=== PATIENT | male | born 1945 | race Caucasian/White ===

== ENCOUNTER 2020-10-09 15:46 | Inpatient (IN) | payer MEDICARE, OTHER ==
[~2020-10-09] VITALS: Ht 170.2 cm; Wt 59.7 kg
[2020-10-09] MEDS ORDERED: LOVENOX40 MG/0.4 SUBQ (17:01)
[2020-10-09] MEDS ORDERED: FEOSOL325 M1 PO (17:02)
[2020-10-09] MEDS ORDERED: LIDODERM1 EACH TOP (17:03)
[2020-10-09] MEDS ORDERED: PROSCAR 5MG TABL5 M1 PO (17:05)
[2020-10-09] MEDS ORDERED: OXYCODONE HCL 55 MG PO (17:05)
[2020-10-09] MEDS ORDERED: ARICEPT10 M1 PO (17:05)
[2020-10-09] MEDS ORDERED: NEURONTIN300 MG PO (17:06)
[2020-10-09] MEDS ORDERED: HUMALOG100 UNIT/1 SUBQ (17:17)
[2020-10-09] MEDS ORDERED: COZAAR 25 MG TA25 M1 PO (17:18)
[2020-10-09] MEDS ORDERED: MIRALAX119 GM PO (17:18)
[2020-10-09] MEDS ORDERED: TRAZODONE HCL50 MG PO (17:19)
[2020-10-09] MEDS ORDERED: TYLENOL EXTRA500 MG PO (17:20)
[2020-10-09] MEDS ORDERED: ASPIRIN EC81 M1 PO (17:20)
[2020-10-09] MEDS ORDERED: LIPITOR 40 MG T40 M1 PO (17:20)
[2020-10-09] MEDS ORDERED: BENZONATATE200 MG PO (17:21)
[2020-10-09] MEDS ORDERED: CARVEDILOL6.25 M1 PO (17:22)
[2020-10-09] MEDS ORDERED: GRANISETRON HCL1 MG PO (17:23)
[2020-10-09] MEDS ORDERED: COUGH SYRU100 MG/5 M PO (17:24)
[2020-10-09] MEDS ORDERED: MELATONIN5 M1 PO (17:25)
[2020-10-09] MEDS ORDERED: PROTONIX40 M2 PO (17:26)
[2020-10-09] MEDS ORDERED: DAILY VALUE1 EAC1 PO (17:26)
[2020-10-09] MEDS ORDERED: ACIDOPHILUS1 EAC2 PO (17:27)
[2020-10-09] MEDS ORDERED: COMPAZINE10 MG PO (17:27)
[2020-10-09] MEDS ORDERED: CVS SENNA PLUS1 EACH PO (17:28)
[2020-10-09] MEDS ORDERED: JANUVIA100 MG PO (17:28)
[2020-10-09] MEDS ORDERED: FLOMAX0.4 MG PO (17:29)
[2020-10-09] MEDS ORDERED: TROSPIUM CHLORI20 MG PO (17:29)
[2020-10-09 20:00] VITALS: BP 141/61
--- NOTE | 2020-10-10 02:06 | NUR ---
PT ARRIVED TO FLOOR AT APPROXIMATELY 2000 FROM [facility]. PT HAS HISTORY OF FALL ON 10/01/20 WITH R HIP FRACTURE, ORIF WITH HEMATOMA DRAINAGE ON 10/02/20. ISLAND DRESSING TO RIGHT HIP IS C/D/I. BACH FOR RETENTION, FAILED VOIDING TRIAL AND BACH REPLACED ON 10/05/20. DEACCESSED PORTACATH TO UPPER RIGHT CHEST. SCAB ON RIGHT BUTTOCK, PICTURE IN CHART. H/O ESOPHAGEAL CANCER IN 2019, FOLLOWED WITH CHEMOTHERAPY. PT MAKES GURGLING, WET, UNPRODUCTIVE THROAT CLEARING NOISE PER SPOUSE SINCE THE CANCER. PT HAS FRONTAL TEMPORAL DEMENTIA, QUESTIONING ALZHEIMER'S. H/O SEPSIS AND BACTEREMIA, ESBL IN URINE AUGUST 2020, PT TO BE ON CONTACT ISOLATION. NO STOOL SINCE FRIDAY, MULTIPLE MEDS GIVEN BEFORE HE LEFT [facility] AND NIGHT MEDS HERE. PT SETTLED INTO BED, ANSWERED ADMISSION QUESTIONS PT WAS ASLEEP. BED ALARM ON, WILL CONTINUE TO MONITOR.
[2020-10-10 04:41] LABS: ABSOLUTE EOSINOPHILS 0.1 thou/uL (0.0-0.7); ABSOLUTE LYMPHOCYTES 0.7 thou/uL (0.8-5.3); ABSOLUTE MONOCYTES 0.5 thou/uL (0.0-1.2); ABSOLUTE NEUTROPHILS 2.6 thou/uL (1.6-8.1); BASOPHILS 0.6 %; HEMATOCRIT 25.7 % (42.0-52.0); HEMOGLOBIN 8.5 gm/dL (14.0-18.0); LYMPHOCYTES 17.8 %; MCH 28.6 pg (26.0-34.0); MCHC 32.9 g/dL (28.0-37.0); MCV 86.7 fL (80.0-100.0); MONOCYTES 12.3 %; MPV 6.4 fl. (7.2-11.1); NUCLEATED RBCS 0 /100WBC; PLATELET COUNT* 205 thou/uL (150-400); POLYS 67.3 %; RBC 2.97 mil/uL (4.50-6.00); RDW-CV 17.5 % (10.5-14.5); WBC 3.8 thou/uL (4.0-11.0)
--- NOTE | 2020-10-10 04:48 | NUR ---
ASSUMED PT CARE AT 1999. PT SLEPT THROUGH ADMISSION PROCESS, QUESTIONS ANSWERED BY . PT INSISTED IN SLEEPING IN HIS TRACK PANTS AND BRIEF. DENIES PAIN. AWAKENED EARLY, WATCHING TELEVISION LYING IN BED. PT RECEIVED NUMEROUS BOWEL MEDS BEFORE DEPARTING [facility] AND SEVERAL MORE HERE WITH EVENING MEDS. NO STOOL SO FAR THIS SHIFT. CALL LIGHT IN REACH, BED ALARM ON FOR SAFETY. HOURLY ROUNDING IN PROGRESS, WILL CONTINUE TO MONITOR.
[2020-10-10 04:55] LABS: CREATININE 0.9 mg/dL (0.6-1.3); POTASSIUM 4.1 mmol/L (3.5-5.1)
[2020-10-10 07:25] VITALS: BP 129/56
--- NOTE | 2020-10-10 10:15 | NUR ---
Nutrition: Pt admitted to rehab s/p hip ORIF. Wt: 150#. Eating 100% of meals. CHO controlled diet. Closed sacral wound. No nutritionally significant labs. Low risk.
--- NOTE | 2020-10-10 16:08 | NUR ---
PT WORKED WITH THERAPIES. UP WITH MAX ASSIST X2. BACH TO DD. SMALL SCAB TO R BUTTOCK. DRESSING C/D/I. R HIP DRESSING C/D. BLE DOPPLER COMPLETED PER ORDER. AT BEDSIDE. PRN PAIN MEDICATION GIVEN PER ORDER. REPORTS THAT THE PT ALWAYS RATES HIS PAIN AT 9 OR 10. CAUTIONS ABOUT GIVING TOO MUCH PAIN MEDICATION HE ALWAYS REPORTS A HIGH NUMBER. FALL PRECAUTIONS IN PLACE. CALL LIGHT IN REACH.
[2020-10-10 19:00] VITALS: BP 92/47
--- NOTE | 2020-10-10 20:40 | NUR ---
AWAKENED FOR REASSESSMENT AND MEDICATION PASS. TOOK MEDICATIONS WHOLE A FEW AT A TIME WITH WATER. SNACK PROVIDED. BACH TO DEPENDENT DRAINAGE WITH YELLOW URINE. CALL LIGHT WITHIN REACH.
[2020-10-11 04:12] LABS: HEMATOCRIT 26.8 % (42.0-52.0); HEMOGLOBIN 8.8 gm/dL (14.0-18.0); MCH 28.7 pg (26.0-34.0); MCV 86.9 fL (80.0-100.0); MPV 6.6 fl. (7.2-11.1); RBC 3.08 mil/uL (4.50-6.00); RDW-CV 17.7 % (10.5-14.5); WBC 6.6 thou/uL (4.0-11.0)
[2020-10-11 04:20] LABS: CALCIUM 9.1 mg/dL (8.5-10.1); CREATININE 0.9 mg/dL (0.6-1.3)
--- NOTE | 2020-10-11 05:05 | NUR ---
INCONTINENT OF SMALL AMOUNT OF STOOL X ONE THEN HAD A MODERATE FORMED STOOL PER BEDPAN. JHONY CARE GIVEN. HOURLY ROUNDING IN PROGRESS.
[2020-10-11 07:28] VITALS: BP 146/62
--- NOTE | 2020-10-11 11:53 | NUR ---
WOUND NURSE: PATIENT SEEN TO ADDRESS 1.5 X 1.5 X 0.1 CM SHALLOW EROSION WITH IRREGULAR EDGES AND REDDISH BROWN SCAB IN PLACE. PRESENTS A SHEARING WOUND WHICH PATIENT WAS ADMITTED WITH. THERE IS NO DRAINAGE. PLAN FOR ZGUARD MOISTURE BARRIER PASTE Q SHIFT AND ACQUISITION OF A LOW AIRLOSS MATTRESS FOR PATIENT WHO WAS UNABLE TO REPOSITION HIMSELF. PATIENT INSTRUCTED ON ON NEED FOR FREQUENT REPOSITIONING AND STATES HE UNDERSTANDS.
--- NOTE | 2020-10-11 17:00 | NUR ---
PT LETHARGIC AND NOT ABLE TO KEEP HIS EYES OPEN. DR OLIVER AND DR BANUELOS NOTIFIED. SCHEDULED TRAMADOL ORDER CHANGED TO PRN AND TRAZADONE DISCONTINUED. PT WORKED SOME WITH THERAPY. INCONT OF LARGE STOOL. JHONY CARE AND PAD CHANGED. PT CONFUSED AND FORGETFUL. HERE TO VISIT. UP WITH MAX ASSIST X2. FALL PRECAUTIONS IN PLACE. CALL LIGHT IN REACH.
[2020-10-11 22:30] VITALS: BP 157/61
--- NOTE | 2020-10-12 01:27 | NUR ---
ASSUMED CARE AT 1915. PATIENT RESTING IN RECLINER, FINISHING SUPPER. ASSISTED TO BED VIA LUPE LIFT WITH TWO PERSON ASSIST. BACH DRAINING MILTON URINE. AWAKENED FOR MEDS AND ASSESSMENT. SEE MAR. TAKES PILLS WHOLE WITH WATER. MOISTURE BARRIER APPLIED TO BUTTOCKS. ON LOW AIR LOSS MATTRESS. ASSISTED WITH TURNS. NO SSI NEEDED WITH HS BLOOD SUGAR. HAS RESIDUAL OF INCONTINENT STOOL ON BUTTOCKS, SKIN CARE DONE, MOISTURE BARRIER APPLIED. HOURLY ROUNDS CONTINUE. BED ALARM ON. CALL LITE IN REACH.
--- NOTE | 2020-10-12 06:08 | NUR ---
SLEPT MOST OF THE NIGHT. ASSISTED WITH POSITION CHANGE. NO APPARENT DISTRESS. BACH DRAINING MILTON URINE. HOURLY ROUNDS CONTINUE. BED ALARM ON. CALL LITE IN REACH.
[2020-10-12 08:07] VITALS: BP 151/57
[2020-10-12 21:10] VITALS: BP 173/64
[2020-10-13 08:00] VITALS: BP 156/64
--- NOTE | 2020-10-13 08:18 | NUR ---
INITIAL ASSESSMENT: PATIENT ADMITTED TO THE [facility] ON 10/09/20 WITH A DIAGNOSIS OF RIGHT HIP FX ORIF. PT'S SPOUSE INFORMS THAT THE PT HAS A HX OF ALZHEIMERS AND CANCER. PT WAS ABLE TO AMBULATE SHORT DISTANCES AT HOME PRIOR TO ADMIT. PT RESIDES AT HOME WITH SPOUSE AND SHE ASSIST WITH CARES AT HOME. PT ALSO HAS PRIVATE DUTY CAREGIVER ASSITANCE [facility] 8AM-2PM [facility] PT OWNS A WALKER, CANE, CUSTOM WHEELCHAIR, SHOWER CHAIR, STOOL RISER, AND ALSO HAS GRAB BARS IN THE BATHROOM. PT IS CURRENTLY ON-SERVICE WITH [facility] FOR HH, AND PLANS TO RESUME HH SERVICES WITH THEM AT D/C. PT HAS HX OF SNF AT [place], BUT HAD A BAD EXPERIENCE THERE. PT HAS PAST HX OF [facility] AT [facility] (3X[facility] AND [facility] ALL SINCE 2019. CM ORIENTED THE PT AND HIS SPOUSE TO THE REHAB UNIT AND PROCESSES, RESIDENTS RIGHTS INFO, TEAM CONFRENCE, AND TO THE ROLE OF CM. CM WILL REMAIN AVAILABLE TO ASSIST AND FOLLOW NEEDED.
[2020-10-13 19:59] VITALS: BP 167/71
--- NOTE | 2020-10-13 22:52 | NUR ---
ASSUMED CARE AT 1915. PATIENT LYING IN BED. MUCH MORE ALERT THIS EVENING COMPARED TO FRIDAY E LEARNING DESIGNER. TAKES PILLS WHOLE A FEW AT A TIME. GIVEN PEANUT BUTTER AND CRACKERS FOR HS SNACK. REMOVED SHORTS AND BRIEF AT HS TO ALLOW AIR TO BUTTOCKS. INCONTINENT OF SOLID STOOL, SKIN CARE DONE, Z GUARD APPLIED BILAT BUTTOCKS. BACH DRAINS MILTON URINE, 1150 MLS REMOVED AT HS. TURNS SELF. NO C/O PAIN. HOURLY ROUNDS CONTINUE. BED ALARM ON. CALL LITE IN REACH.
--- NOTE | 2020-10-14 05:45 | NUR ---
SLEPT MOST OF THE NIGHT. TURNS SELF. NO C/O PAIN. BACH DRAINS MILTON URINE. HOURLY ROUNDS CONTINUE. BED ALARM ON. CALL LITE IN REACH.
[2020-10-14 08:00] VITALS: BP 131/65
--- NOTE | 2020-10-14 16:26 | NUR ---
PT WORKED WITH THERAPIES. UP WITH MAX ASSIST X2. INCONT OF STOOL WHILE WORKING WITH THERAPY. JHONY CARE GIVEN AND BED PAD CHANGED. PRN PAIN MEDICATION GIVEN PER PT REQUEST. BACH TO DD. PT ATTEMPTED TO EAT HIS STRAW WHILE ST WAS WORKING WITH HIM. STRAW REMOVED FROM ROOM. CONFUSED AND FORGETFUL AT TIMES. FALL PRECAUTIONS IN PLACE. CALL LIGHT IN REACH. CAME TO VISIT.
[2020-10-14 19:00] VITALS: BP 160/68
--- NOTE | 2020-10-15 04:59 | NUR ---
ASSUMED CARES AT 1920. ALERT AND ORIENTED BUT FORGETFUL. DRESSING TO RIGHT LEG LOOSE AND SO WAS CHANGED. PAIN MEDS GIVEN NEEDED FOR RIGHT HIP PAIN. STOOL INCONTINENCE. BACH CATHETER DD YELLOW URINE. ZGUARD APPLIED TO BUTTOCK. TURNED THROUGHOUT THE NIGHT. CALL LIGHT IN REACH AND BED ALARM ON.
[2020-10-15 07:31] VITALS: BP 172/69
--- NOTE | 2020-10-15 16:36 | NUR ---
PT UP WITH ASSIST X2, WALKER, AND GAIT BELT. BACH TO AMBER. PRN PAIN MEDICATION GIVEN PER PT REQUEST. ICE PACK PROVIDED FOR R HIP PAIN. HAD SEVERAL VISITORS TODAY. FALL PRECAUTIONS IN PLACE. CALL LIGHT IN REACH.
[2020-10-15 19:30] VITALS: BP 176/73
--- NOTE | 2020-10-16 05:33 | NUR ---
ASSUMED CARES AT 1920. ALERT AND ORIENTED. CAN BE FORGETFUL. PAIN MEDS GIVEN NEEDED FOR RIGHT HIP PAIN. BACH CATHETER DD YELLOW URINE. ZGUARD TO ABRASION BUTTOCK. STOOL INCONTINENCE X 1. SLEPT MOST OF THE NIGHT. CALL LIGHT IN REACH AND BED ALARM ON.
[2020-10-16 07:33] VITALS: BP 123/57
--- NOTE | 2020-10-16 16:19 | NUR ---
PT WORKED WITH THERAPIES. UP WITH ASSIST X1, GAIT BELT, AND WALKER. PT MOVES VERY SLOWLY. PRN PAIN MEDICATION GIVEN PER PT REQUEST. BACH TO DD. INCONT OF STOOL. FALL PRECAUTIONS IN PLACE. CALL LIGHT IN REACH. PT'S SON HERE TO VISIT.
--- NOTE | 2020-10-16 16:23 | NUR ---
CM CHECK-IN: CM SPOKE TO PT AND SPOUSE TO DISCUSS ANY QUESTIONS OR CONCERNS THAT THEY MAY HAVE FOR THIS WEEKS TEAM CONFRENCE MEETING. PT AND SPOUSE HAVE NO QUESTIONS OR CONCERNS AT THIS TIME.
[2020-10-16 19:00] VITALS: BP 126/58
--- NOTE | 2020-10-16 20:45 | NUR ---
RESTING QUIETLY AND WATCHING TV. DENIES DISCOMFORT. CALL LIGHT WITHIN REACH. SNACK PROVIDED. TOOK MEDICATIONS WHOLE WITH WATER. BACH TO DEPENDENT DRAINAGE WITH CLOUDY YELLOW URINE.
--- NOTE | 2020-10-17 05:03 | NUR ---
RESTED QUIETLY. ASSISTED WITH REPOSITIONING THROUGHOUT THE NIGHT. HOURLY ROUNDING IN PROGRESS.
[2020-10-17 08:00] VITALS: BP 142/73
--- NOTE | 2020-10-17 14:02 | NUR ---
WOUND NURSE: PATIENT SEEN FOR FOLLOW UP ASSESSMENT PERTAINING TO LEFT BUTTOCK SHEARING WOUND. NOW MEASURES 0.5 X 0.3 X 0.1 CM. WOUND WITH EARLY PINK EPITHELIAL TISSUE IN THE WOUND BED AND MEASURES SMALLER THAN LAST ASSESSMENT. CLEANSED WITH SOAP AND WATER, RINSED, THEN PATTED DRY. APPLIED SKIN PREP TO INTACT PERIWOUND TISSUE. APPLIED EXUDERM LP TO WOUND, THEN SECURED IN PLACE WITH SURESITE TRANSPARENT DRESSING. PATIENT REINSTRUCTED ON NEED TO FREQUENT REPOSITIONING TO PROMOTE HEALING. PATIENT STATED HE UNDERSTOOD TO THE INSTRUCTIONS.
[2020-10-17 20:00] VITALS: BP 148/66
--- NOTE | 2020-10-18 05:19 | NUR ---
ASSUMED CARES AT 1920. ALERT AND ORIENTED. PLEASANT. FORGETFUL AT TIMES. PAIN MED GIVEN FOR RT HIP PAIN. DRSG TO RIGHT LEG INTACT. BACH CATHETER DD YELLOW URINE. DRSG TO BUTTOCK INTACT. SLEPT OFF AND ON. CALL LIGHT IN REACH AND BED ALARM ON.
[2020-10-18 05:34] LABS: HEMATOCRIT 27.1 % (42.0-52.0); MCH 28.8 pg (26.0-34.0); MCHC 33.1 g/dL (28.0-37.0); MCV 86.8 fL (80.0-100.0); MPV 6.2 fl. (7.2-11.1); RBC 3.13 mil/uL (4.50-6.00); RDW-CV 18.2 % (10.5-14.5); WBC 6.5 thou/uL (4.0-11.0)
[2020-10-18 05:41] LABS: CALCIUM 8.9 mg/dL (8.5-10.1); CREATININE 0.9 mg/dL (0.6-1.3); POTASSIUM 3.9 mmol/L (3.5-5.1)
[2020-10-18 08:00] VITALS: BP 139/70
[2020-10-18 19:00] VITALS: BP 151/64
--- NOTE | 2020-10-18 21:00 | NUR ---
RESTING QUIETLY AND WATCHING BASEBALL ON TV. TRAMADOL GIVEN FOR COMPLAINT OF RIGHT HIP PAIN RATED "10". BACH TO DEPENDENT DRAINAGE WITH CLOUDY YELLOW URINE. SNACK PROVIDED. CALL LIGHT WITHIN REACH.
--- NOTE | 2020-10-19 05:17 | NUR ---
RESTED ON/OFF. NO FURTHER COMPLAINT OF PAIN. HOURLY ROUNDING IN PROGRESS.
[2020-10-19 08:29] VITALS: BP 145/68
[2020-10-19 19:55] VITALS: BP 145/65
--- NOTE | 2020-10-20 05:03 | NUR ---
ASSUMED CARES AT 1915. ALERT AND ORIENTED. PAIN MEDS GIVEN NEEDED FOR RIGHT HIP. DRSG TO RIGHT LEG INTACT. BACH CATHETER DD YELLOW URINE. DRSG TO BUTTOCK INTACT. SLEPT MOST OF THE NIGHT. CALL LIGHT IN REACH AND BED ALARM ON.
[2020-10-20 07:30] VITALS: BP 140/69
--- NOTE | 2020-10-20 13:57 | NUR ---
AM ASSESSMENT AND VITAL SIGNS COMPLETED DOCUMENTED. PT CONTINUES TO WORK WITH PT, OT AND ST AND IS MAKING GOOD PROGRESS. FC TO DD WITH CLOUDY STRAW COLORED URINE OUTPUT. PRN PAIN MEDICATIONS ARE ADEQUATELY CONTROLLING HIS PAIN. FALL PRECAUTIONS AND HOURLY ROUNDING CONTINUE.
--- NOTE | 2020-10-20 16:58 | NUR ---
TEAM CONFRENCE MEETING HELD THIS WEEK. PLAN TO RE-TEAM AND HAVE THE PT REMAIN ON THE UNIT FOR ANOTHER WEEK TO CONTINUE THERAPIES. PT PROGRESSING TOWARDS GOALS, BUT BARRIERS ARE FETIGUE, MEMORY, ATTENTION, AND RIGHT HIP PAIN. CM WILL REMAIN AVAILABLE TO ASSIST AND FOLLOW NEEDED.
[2020-10-20 20:00] VITALS: BP 150/64
--- NOTE | 2020-10-21 02:32 | NUR ---
PT A&O, FORGETFUL AT TIMES. MEDS GIVEN ORDERED. NO C/O PAIN. DRESSINGS C/D/I. BACH IN PLACE. CALL LIGHT WITHIN REACH. WILL CONTINUE TO MONITOR.
[2020-10-21 08:00] VITALS: BP 129/85
--- NOTE | 2020-10-21 16:09 | NUR ---
PT UP FOR BREAKFAST THEN WANTED TO GET BACK IN BED DUE TO HIS RIGHT HIP HURTING 10/10 ALL DAY. PT IS VISITING WITH HIS GRANDSON TO WATCH HIM OPEN HIS BIRTHDAY PRESENT FROM [employer]. VSS AFEBRILE. WILL CONTINUE TO MONITOR PLAN OF CARE. HOPEFULLY NEW PAIN REGIMEN WILL HELP WITH PAIN CONTROL.
[2020-10-21 20:40] VITALS: BP 125/56
--- NOTE | 2020-10-21 20:45 | NUR ---
SITTING UP IN BED CHEWING ON PAPER FROM A STRAW. PATIENT SPIT OUT THE PAPER WILLINGLY. TOOK MEDICATIONS WHOLE WITH WATER. SNACK PROVIDED AND CONSUMED. BACH TO DEPENDENT DRAINAGE WITH CLOUDY YELLOW URINE. TRAMADOL GIVEN FOR COMPLAINT OF RIGHT HIP PAIN RATED "10". CALL LIGHT WITHIN REACH.
--- NOTE | 2020-10-22 04:58 | NUR ---
RESTED ON/OFF. NO FURTHER COMPLAINT OF PAIN. HOURLY ROUNDING IN PROGRESS.
[2020-10-22 08:00] VITALS: BP 131/65
--- NOTE | 2020-10-22 16:09 | NUR ---
PT UP TODAY BUT WOULD NOT GET OUT OF BED FOR ANY MEALS STATED HIS RIGHT HIP HURTS TOO MUCH. VSS AFEBRILE. PT HAD LARGE BM TODAY AND WAS CLEANED UP SHEETS CHANGED. WOUND ON RIGHT BUTTOM HAD PICTURE TAKEN AND WAS REDRESSED. WILL CONTINUE TO MONITOR PLAN OF CARE.
[2020-10-22 19:45] VITALS: BP 169/70
--- NOTE | 2020-10-22 19:50 | NUR ---
SITTING UP IN BED WATCHING TV. UPSET ABOUT NOT GETTING DAVID FOOD CAKE AT SUPPER. SNACK PROVIDED. BACH TO DEPENDENT DRAINAGE WITH CLOUDY/YELLOW FOUL SMELLING URINE. CALL LIGHT WITHIN REACH. PAIN MEDICATION GIVEN FOR COMPLAINT OF RIGHT HIP PAIN RATED "10".
--- NOTE | 2020-10-23 05:30 | NUR ---
RESTED QUIETLY. HOURLY ROUNDING IN PROGRESS.
[2020-10-23 08:00] VITALS: BP 138/66
--- NOTE | 2020-10-23 16:18 | NUR ---
AM ASSESSMENT AND VITAL SIGNS COMPLETED DOCUMENTED. PT WORKED WITH PT, OT AND ST TODAY. PT IS TRYING TO REACH DISCHARGE GOALS BY FRIDAY. NEW ORDER RECEIVED TO DC BACH CATHETER IN THE AM AND DO A VOIDING TRIAL. FALL PREVENTIONS AND HOURLY ROUNDING CONTINUE.
[2020-10-23 19:00] VITALS: BP 158/62
--- NOTE | 2020-10-23 20:00 | NUR ---
RESTING QUIETLY IN BED AND WATCHING TV. PAIN MEDICATION GIVEN FOR COMPLAINT OF RIGHT HIP PAIN RATED "9". BACH TO DEPENDENT DRAINAGE WITH YELLOW URINE. SNACK PROVIDED. CALL LIGHT WITHIN REACH.
--- NOTE | 2020-10-24 05:07 | NUR ---
RESTED QUIETLY. NO FURTHER COMPLAINT OF PAIN. HOURLY ROUNDING IN PROGRESS. WILL BE DISCONTINUING BACH CATHETER PER ORDER.
[2020-10-24 08:10] VITALS: BP 142/68
--- NOTE | 2020-10-24 15:17 | NUR ---
RE TEAM: PT STATED "I WANT TO GO HOME." SHELDON WOULD LIKE PT TO BE MOBILE WITH WALKER TO GET UP &DOWN AND IN& OUT OF CAR. SHELDON WANTS PT TO ACHEIVE THIS MARKER IN ORDER FOR HER TO BE ABLE TO CARE FOR HIM AT HOME. PT HAS HIRED C/G FROM 8A-2P MON-FRI. SHELDON WANTS TO KNOW "HOW MUCH DOES THE DEMENTIA PLAYS INTO PT NOT FOLLOWING COMMANDS IT PERTAINS TO "THE MOVEMENTS" LIKE TAKING HANDS OFF THE WALKER. PT HAS HX WITH [facility].
--- NOTE | 2020-10-24 16:55 | NUR ---
PT WORKED WITH THERAPIES. UP WITH WALKER, GAIT BELT, AND ASSIST X1. BACH CATHETER D/C'D THIS AM. BLADDER SCAN READS 273. PT VOIDED PER URINAL 175 AFTER SCAN. PAIN MEDICATION GIVEN PER ORDER. HERE TO VISIT. FALL PRECAUTIONS IN PLACE. CALL LIGHT IN REACH.
[2020-10-24 19:00] VITALS: BP 162/72
[2020-10-25 05:35] LABS: HEMATOCRIT 27.7 % (42.0-52.0); HEMOGLOBIN 9.1 gm/dL (14.0-18.0); MCH 28.7 pg (26.0-34.0); MCHC 32.9 g/dL (28.0-37.0); MCV 87.2 fL (80.0-100.0); MPV 6.4 fl. (7.2-11.1); RBC 3.18 mil/uL (4.50-6.00); RDW-CV 18.4 % (10.5-14.5); WBC 5.1 thou/uL (4.0-11.0)
[2020-10-25 05:45] LABS: CALCIUM 9.1 mg/dL (8.5-10.1); CREATININE 0.8 mg/dL (0.6-1.3); POTASSIUM 3.9 mmol/L (3.5-5.1)
[2020-10-25 07:52] VITALS: BP 149/62
--- NOTE | 2020-10-25 16:10 | NUR ---
PT WORKED WITH THERAPIES. UP WITH WALKER, GAIT BELT, AND ASSIST X1. DRESSING TO R HIP C/D/I. SCHEDULED PAIN MEDICATION GIVEN. INCONT OF B/B. SORE TO BUTTOCK HEALING. AT BEDSIDE. POTENTIAL DISCHARGE TOMARROW. FALL PRECAUTIONS IN PLACE. CALL LIGHT IN REACH.
--- NOTE | 2020-10-25 19:50 | NUR ---
RESTING QUIETLY IN BED AND WATCHING TV. DENIES DISCOMFORT. CALL LIGHT WITHIN REACH.
[2020-10-25 20:04] VITALS: BP 185/83
--- NOTE | 2020-10-26 04:57 | NUR ---
RESTED QUIETLY. INCONTINENT OF URINE REQUIRING A TOTAL BED CHANGE. JHONY CARE GIVEN. HOURLY ROUNDING IN PROGRESS.
[2020-10-26 12:37] VITALS: BP 185/83
--- NOTE | 2020-10-26 15:31 | NUR ---
TEAM CONFRENCE MEETING HELD THIS WEEK AND PHYSICIAN INFORMS OF DECISION FOR PT TO D/C HOME WITH SPOUSE AND PREVIOUS HH. PT AND SPOUSE IN AGREEMENT. PT PROGRESSED WELL TOWARDS AND MET ANTICIPATED SELF-CARE GOAL. PT CONTINUES TO MAKE PROGRESS WITH MOBILITY GOAL, BUT WILL REQUIRE SPOUSE ASSISTANCE WELL HH WITH PT/OT TO CONTINUE MAKING PROGRESS AT HOME AND TO FACILITATE SAFE DISCHARGE PLAN. PT HAS ALL NEEDED DME. CM FAXED D/C AND HH ORDERS TO [facility] AND INFORMED INTAKE OF PT'S D/C. CM WILL REMAIN AVAILABLE TO ASSIST AND FOLLOW NEEDED. [facility] PHONE: [phone] FAX: [phone]
--- NOTE | 2020-10-26 15:31 | NUR ---
PT HAS MET HIS DISCHARGE GOALS. DISCHARGE INSTRUCTIONS PROVIDED TO PATIENT AND HIS . PT AND BELONGINGS TRANSPORTED TO EXIT, DISCHARGED HOME IN STABLE CONDITION.
== END 2020-10-26 15:39 | disposition home health service (06) | DRG 536 ==
LOC: M.REH 15:46
PROVIDERS: ADMIT Physical Medicine & Rehabilitation; ATTEND Physical Medicine & Rehabilitation
DX: S72.011A Unspecified intracapsular fracture of right femur, initial encounter for closed fracture (principal); D62 Acute posthemorrhagic anemia; R53.81 Other malaise; G30.9 Alzheimer's disease, unspecified; F02.80 Dementia in other diseases classified elsewhere, unspecified severity, without behavioral disturbance, psychotic disturbance, mood disturbance, and anxiety; J44.9 Chronic obstructive pulmonary disease, unspecified; E11.40 Type 2 diabetes mellitus with diabetic neuropathy, unspecified; E11.51 Type 2 diabetes mellitus with diabetic peripheral angiopathy without gangrene; R33.9 Retention of urine, unspecified; I10 Essential (primary) hypertension; X58.XXXA Exposure to other specified factors, initial encounter; I77.9 Disorder of arteries and arterioles, unspecified; Y93.89 Activity, other specified; Z85.01 Personal history of malignant neoplasm of esophagus; Z88.1 Allergy status to other antibiotic agents; Z79.899 Other long term (current) drug therapy; Z79.82 Long term (current) use of aspirin; Z87.891 Personal history of nicotine dependence; Z89.431 Acquired absence of right foot; Y92.89 Other specified places as the place of occurrence of the external cause; Y99.8 Other external cause status; Z88.8 Allergy status to other drugs, medicaments and biological substances; Z98.1 Arthrodesis status

== ENCOUNTER 2020-11-02 10:52 | Inpatient (IN) | payer MEDICARE, OTHER ==
[~2020-11-02] VITALS: Ht 170.2 cm; Wt 70.9 kg
[~2020-11-02 10:52] MED LIST: ACIDOPHILUS1 EAC2 PO; ARICEPT10 M1 PO; ASPIRIN EC81 M1 PO; BENZONATATE200 MG PO; CARVEDILOL6.25 M1 PO; COMPAZINE10 MG PO; COUGH SYRU100 MG/5 M PO; COZAAR 25 MG TA25 M1 PO; CVS SENNA PLUS1 EACH PO; DAILY VALUE1 EAC1 PO; FEOSOL325 M1 PO; FLOMAX0.4 MG PO; GRANISETRON HCL1 MG PO; HUMALOG100 UNIT/1 SUBQ; JANUVIA100 MG PO; LIDODERM1 EACH TOP; LIPITOR 40 MG T40 M1 PO; LOVENOX40 MG/0.4 SUBQ; MELATONIN5 M1 PO; MIRALAX119 GM PO; NEURONTIN300 MG PO; OXYCODONE HCL 55 MG PO; PROSCAR 5MG TABL5 M1 PO; PROTONIX40 M2 PO; TRAZODONE HCL50 MG PO; TROSPIUM CHLORI20 MG PO; TYLENOL EXTRA500 MG PO
[2020-11-02] MEDS ORDERED: HUMALOG100 UNIT/1 SUBQ (12:27)
[2020-11-02] MEDS ORDERED: MIRALAX119 GM PO (12:28)
[2020-11-02] MEDS ORDERED: TESSALON PERLE100 M1 PO (12:29)
[2020-11-02] MEDS ORDERED: GRANISETRON HCL1 MG PO (12:30)
[2020-11-02] MEDS ORDERED: ADULT WAL-100 MG/5 M PO (12:31)
[2020-11-02] MEDS ORDERED: COMPAZINE10 MG PO (12:33)
[2020-11-02] MEDS ORDERED: CVS SENNA PLUS1 EACH PO (12:33)
[2020-11-02] MEDS ORDERED: TROSPIUM CHLORI20 MG PO (12:34)
[2020-11-02] MEDS ORDERED: INVANZ1 GM IVPB (12:35)
[2020-11-02 16:12] VITALS: BP 115/48
--- NOTE | 2020-11-02 18:12 | NUR ---
PATIENT ADMITTED FROM [facility] THIS AFTERNOON. REPORT RECEIVED FROM PONCHO BARRETT. PATIENT ALERT AND ORIENTED. WOUND PHOTOS TAKEN OF LEFT BUTTOCK AND RIGHT HEEL WOUNDS. BACH IN PLACE, PER PATIENT UROLOGIST BACH TO REMAIN IN PLACE AND NOT BE DC'D. RATING RIGHT HIP PAIN A 10/10, PRN OXY IR GIVEN THIS EVENING ORDERED. ACCUCHECK AC/HS. DR. BANUELOS NOTIFIED OF PATIENTS ARRIVAL AND ORDERS RECEIVED. PATIENT HERE THIS EVENING TO ASSIST WITH PATIENT ADMISSION. BED ALARM ON FOR PATIENT SAFETY. CALL LIGHT WITHIN REACH.
[2020-11-02 20:00] VITALS: BP 106/45
[2020-11-03 04:30] LABS: HEMATOCRIT 23.2 % (42.0-52.0); HEMOGLOBIN 7.8 gm/dL (14.0-18.0); MCH 29.3 pg (26.0-34.0); MCHC 33.7 g/dL (28.0-37.0); MCV 87.1 fL (80.0-100.0); MPV 6.7 fl. (7.2-11.1); RBC 2.67 mil/uL (4.50-6.00); RDW-CV 18.6 % (10.5-14.5); WBC 5.9 thou/uL (4.0-11.0)
[2020-11-03 04:48] LABS: CALCIUM 8.8 mg/dL (8.5-10.1); CREATININE 1.2 mg/dL (0.6-1.3); POTASSIUM 4.2 mmol/L (3.5-5.1)
--- NOTE | 2020-11-03 05:10 | NUR ---
ASSUMED CARES AT 1920. ALERT AND ORIENTED. FLAT AFFECT. COOPERATIVE. IV PORTACATH FLUSHING WELL WITH GOOD BLOOD RETURN. BACH CATHETER DD YELLOW URINE. HEELS UP ONTO PILLOWS WHILE IN BED. WOUND CONSULT PLACED FOR AREA TO RIGHT HEEL. SLEPT LITTLE OFF AND ON. CALL LIGHT IN REACH AND BED ALARM ON.
[2020-11-03 08:18] VITALS: BP 116/46
--- NOTE | 2020-11-03 11:12 | NUR ---
Nutrition: Pt admitted to rehab. H/o alzheimers, DM, GB removal, midfoot amputation. Wts are variable, 131-150#, currently 146#. Has been eating well. BG ok, no albumin recorded. 2gm Na diet with a CHO count. Will follow weekly on rehab. Low risk.
--- NOTE | 2020-11-03 11:59 | NUR ---
WOUND NURSE: PATIENT SEEN TO ADDRESS SKIN LESION ON RIGHT HEEL. PRESENTS A HEALED BLISTER WHICH HAS DRIED UP AND CALLOUSED. AFFECTED AREA IS 1.0 X 1.0 CM. 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 NO WOUND.
--- NOTE | 2020-11-03 16:33 | NUR ---
PATIENT COMPLETED THERPIES ORDERED THIS SHIFT. UP WITH MAX ASSISTANCE, GAIT BELT AND WALKER. PATIENT HAD RIGHT HIP XRAY THIS AM, DR. BANUELOS AWARE OF RESULTS AND OK TO RESUME THERAPY. PRN OXY IR GIVEN FOR RIGHT HIP PAIN AND LIDODERM PATCH IN PLACE. BACH DRAINING YELLOW URINE, BM NOTED VIA BSC. RIGHT CHEST PAC DRESSING CHANGED AND IV ABX INFUSED ORDERED.
[2020-11-03 20:45] VITALS: BP 107/46
--- NOTE | 2020-11-03 20:45 | NUR ---
AWAKENED FOR REASSESSMENT AND MEDICATION PASS. DENIES DISCOMFORT. BACH TO DEPENDENT DRAINAGE WITH CLEAR/YELLOW URINE. CALL LIGHT WITHIN REACH.
--- NOTE | 2020-11-04 04:59 | NUR ---
RESTED QUIETLY. REMAINS ON IU ABT. HOURLY ROUNDING IN PROGRESS.
[2020-11-04 08:30] VITALS: BP 134/44
--- NOTE | 2020-11-04 17:32 | NUR ---
PT AO X4 WITH FLAT AFFECT, NOT VERY CONVERSATIONAL. PT RATING 9/10 TAKING OXYCODONE AND LIDOCAINE PATHC FOR PAIN. PT HAS BACH CATH TO DD WITH CLEAR YELLOW URINE. PT SAT IN CHAIR FOR ABOUT HALF THE DAY. EATING 3/4 OF FOOD TRAYS. HOURLY ROUNDING FOR COMFORT AND SAFETY.
[2020-11-04 19:35] VITALS: BP 105/47
--- NOTE | 2020-11-04 19:35 | NUR ---
SITTING UP IN BED WATCHING BASEBALL ON TV. BACH TO DEPENDENT DRAINAGE WITH CLEAR/YELLOW URINE. CALL LIGHT WITHIN REACH.
--- NOTE | 2020-11-05 05:20 | NUR ---
RESTED ON/OFF. HOURLY ROUNDING IN PROGRESS.
[2020-11-05 08:10] VITALS: BP 103/56
--- NOTE | 2020-11-05 18:10 | NUR ---
PT HAS BEEN AO X4 TODAY, WITH VISIT FROM FAMILY AND FREINDS. PAIN RATING 9/10 IN RT HIP FOR WHICH HE TOOK OXYCODONE Q4 HRS. PT STILL HAS BACH. HE HAS GOOD APPETITE AND EATS MOST OF ALL MEAL TRAYS. BED ALARM ON AND SIDE RAILS UP FOR SAFETY.
[2020-11-05 20:11] VITALS: BP 101/54
--- NOTE | 2020-11-05 20:15 | NUR ---
AWAKENED FOR REASSESSMENT AND MEDICATION PASS. BACH TO DEPENDENT DRAINAGE WITH CLEAR/YELLOW URINE. CALL LIGHT WITHIN REACH.
--- NOTE | 2020-11-06 05:44 | NUR ---
RESTED QUIETLY. HOURLY ROUNDING IN PROGRESS.
[2020-11-06 08:00] VITALS: BP 108/47
--- NOTE | 2020-11-06 17:10 | NUR ---
ALERT AND ORIENTD X3. UP WITH 1 ASSIST, GAIT BELT AND WALKER. NEEDS LOTS OF CUEING AND REMINDERS. PO PAIN MEDICATION HELPFUL FOR RIGHT LEG/FOOT PAIN. HAS GEORGE CATH TO RIGHT UPPER CHEST FOR IV ANTIBIODIC. IV ANTIBIODIC INFUSED WITHOUT DIFFICULTY. REMAINS ON 2000ML FLUID RESTRICTION. BACH CATHETER PATENT WITH CLEAR YELLOW URINE. FALL PRECAUTIONS IN PLACE WITH BED ALARM AND CHAIR ALARM USED.
[2020-11-06 20:00] VITALS: BP 110/44
--- NOTE | 2020-11-07 05:10 | NUR ---
ASSUMED PT CARE AT 1930. ASSESSMENT COMPLETED CHARTED. ABLE TO MAKE NEEDS KNOWN. PT IS WITHDRAWN BUT PLEASENT. BACH DRAINING YELLOW URINE. C/O RIGHT LEG PAIN AND GAVE PRN PAIN MEDICATION PER EMAR. PT RESTING IN BED MOST OF THE NIGHT. WILL CONTINUE TO MONITOR.
[2020-11-07 08:15] VITALS: BP 105/57
--- NOTE | 2020-11-07 15:49 | NUR ---
INITIAL ASSESSMENT: PATIENT ADMITTED TO THE [facility] ON 11/02/20 WITH A DIAGNOSIS OF ENCEPHALOPATHY. PT IS A READMIT TO THE IN REHAB UNIT THAT HAD D/C'D ONE WEEK PRIOR. PT RESIDES AT HOME WITH SPOUSE AND SHE ASSIST THE PT WITH ALL CARES. PT HAS PRIVATE DUTY MEAL ROOM HAND. PT ALSO CURRENTLY ON-SERVICE WITH [facility] FOR HH, AND PLANS TO RESUME HH WITH [facility] AT D/C. PT HAS PAST HX OF SNF AT [place], BUT DID NOT HAVE A PLEASANT EXPERIENCE THERE PER SPOUSE. PT HAS ARU HX AT OTHER FACILITIES X3. PT HAS ALL NEEDED DME INCLUDING WALKER, CANE, CUSTOM WHEELCHAIR, SHOWER CHIAR, STOOL RISER, AND GRAB BARS IN BATHROOM. CM REORIENTED PT AND SPOUSE TO THE [facility] AND PROCESSES, RESIDENTS RIGHTS INFO, TEAM CONFRENCE, AND TO THE ROLE OF CM. CM WILL REMAIN AVAILABLE TO ASSIST AND FOLLOW NEEDED. [facility] PHONE: [phone] FAX: [phone]
--- NOTE | 2020-11-07 16:30 | NUR ---
ALERT AND ORIENTED X2. IMPULSIVE AT TIMES AND DOES NOT ALWAYS FOLLOW CUES WHEN GIVEN. REMAINS ON 2000ML FLUID RESTRICTION. TOLERATED IV ANTIBIODIC WITHOUT ADVERSE REACTIONS OR SIDE EFFECTS WITH GEORGE CATH RIGHT UPPER CHEST. HAS NEW PAIN MEDICATION TO HELP WITH RIGHT LEG PAIN. HAS BACH CATHETER PATENT WITH CLEAR YELLOW URINE. CONTINENT OF LARGE BOWEL MOVEMENT TODAY. DOES NOT ALWAY USE CALL LIGHT FOR ASSIST. FALL PRECAUTIONS IN PLACE. BED ALARM AND CHAIR ALARM USED.
[2020-11-07 19:00] VITALS: BP 119/53
[2020-11-08 04:54] LABS: CALCIUM 8.7 mg/dL (8.5-10.1); CREATININE 0.9 mg/dL (0.6-1.3); POTASSIUM 3.8 mmol/L (3.5-5.1)
[2020-11-08 05:10] LABS: HEMATOCRIT 23.8 % (42.0-52.0); MCH 28.7 pg (26.0-34.0); MCHC 33.5 g/dL (28.0-37.0); MCV 85.8 fL (80.0-100.0); MPV 6.8 fl. (7.2-11.1); RBC 2.78 mil/uL (4.50-6.00); RDW-CV 18.4 % (10.5-14.5); WBC 5.4 thou/uL (4.0-11.0)
--- NOTE | 2020-11-08 05:30 | NUR ---
ASSUMED PT CARE AT 1930. ASSESSMENT COMPLETED CHARTED. ABLE TO MAKE SOME NEEDS KNOWN. PT C/O LEG PAIN IS WORSE TONIGHT. GAVE PRN AND SCHEDULED PAIN MEDICATIONS PER EMAR. OFFLOADED HIP ON PILLOW AND THE PAIN SUBSIDED SOME. RESTING IN BED MOST OF THE NIGHT BUT STATED HE HASNT SLEPT. WILL CONTINUE TO MONITOR.
[2020-11-08 08:16] VITALS: BP 112/51
--- NOTE | 2020-11-08 19:55 | NUR ---
RESTING QUIETLY IN BED AND WATCHING TV. BACH TO DEPENDENT DRAINAGE WITH CLEAR/YELLOW URINE. CALL LIGHT WITHIN REACH.
[2020-11-08 20:04] VITALS: BP 103/53
--- NOTE | 2020-11-09 06:13 | NUR ---
RESTED QUIETLY. HAD AN EXTRA LARGE FORMED BM AT BEDTIME AND THIS MORNING HAD AN EXTRA LARGE SOFT UNFORMED BM. JHONY CARE GIVEN. TRANSFERS WITH MAXIMUM ASSIST OF 2, GAITBELT WALKER, CUEING. RELUCTANT TO FOLLOW DIRECTIONS. BECOMES IRRITABLE DURING TRANSFERS. HOURLY ROUNDING IN PROGRESS.
[2020-11-09 08:00] VITALS: BP 109/45
--- NOTE | 2020-11-09 19:40 | NUR ---
RESTING IN RECLINER WITH LEGS ELEVATED. TRANSFERRED TO BED WITH MAX ASSIST OF TWO, GAITBELT, WALKER. FOLLOW CUES POORLY. CALL LIGHT WITHIN REACH.
[2020-11-09 19:50] VITALS: BP 135/62
--- NOTE | 2020-11-10 05:32 | NUR ---
INCONTINENT OF LARGE SOFT UNFORMED STOOL WHILE TRANSFERRING FROM BED TO BEDSIDE COMMODE. EXTENSIVE JHONY CARE GIVEN. PAIN MEDICINE IN ADDITION TO SCHEDULED PAIN MEDICINE GIVEN FOR COMPLAINT OF RIGHT HIP PAIN WITH RELIEF. HOURLY ROUNDING IN PROGRESS.
[2020-11-10 07:54] VITALS: BP 118/58
--- NOTE | 2020-11-10 10:35 | NUR ---
TEAM CONFRENCE UPDATE: PLAN TO RE-TEAM AND HAVE THE PT REMAIN ON THE UNIT FOR ANOTHER WEEK TO CONTINUE THERAPIES. PT AND SPOUSE IN AGREEMENT. CURRENT BARRIERS INCLUDE: DEMENTIA AT BASELINE, FETIGUE, MOTIVATION, SAFETY, RECALL, POOR INITIATION, AND HIP PAIN. CM WILL REMAIN AVAILABLE TO ASSIST AND FOLLOW NEEDED.
--- NOTE | 2020-11-10 11:02 | NUR ---
WOUND NURSE: RIGHT HEEL REMAINS UNCHANGED FROM LASS ASSESSMENT. CALLOUSED HEEL WITH NO WOUND. WILL DISCONTINUE WOUND CONSULT A RESULT.
--- NOTE | 2020-11-10 16:49 | NUR ---
PT WORKED WITH THERAPIES. UP WITH GAIT BELT, WALKER, AND ASSIST X1. IMPULSIVE AND FORGETFUL. DOES NOT FOLLOW DIRECTIONS. BACH TO DD. INCONT OF STOOL. WOUND CARE NURSE MICHELLE HERE TODAY TO LOOK AT R HEEL. R HEEL HAS A CALLOUS. REPORTS PAIN 10/10 EVEN AFTER PAIN MEDICATION GIVEN. HERE TODAY TO VISIT. FALL PRECAUTIONS IN PLACE. CALL LIGHT IN REACH.
[2020-11-10 19:50] VITALS: BP 91/64
[2020-11-11 00:20] VITALS: BP 138/63
--- NOTE | 2020-11-11 06:50 | NUR ---
ASSUMED PT CARE AT 1930. ASSESSMENT COMPLETED CHARTED. ABLE TO MAKE NEEDS KNOWN. C/O HIP PAIN AND GAVE PRN AND SCHEDULED PAIN MEDS PER EMAR. UP WITH 1 ASSIST WITH WHEELCHAIR TO BATHROOM. RESTING IN BED ALL NIGHT. BACH DRAINING YELLOW URINE. WILL CONTINUE TO MONITOR.
[2020-11-11 07:18] VITALS: BP 128/53
[2020-11-11 09:10] VITALS: BP 128/53
--- NOTE | 2020-11-11 16:53 | NUR ---
PT UP WITH ASSIST X 1 TO 2. DOES NOT FOLLOW DIRECTIONS. INCREASED FALL RISK. FALL PRECAUTIONS IN PLACE. CALL LIGHT IN REACH. SCHEDULED PAIN MEDICATION GIVEN.
[2020-11-11 19:00] VITALS: BP 119/49
[2020-11-11 20:00] VITALS: BP 119/49
--- NOTE | 2020-11-12 05:43 | NUR ---
ASSUMED CARES AT 1920. ALERT AND ORIENTED. BACH CATHETER DD YELLOW URINE. PORT A CATH TO RIGHT CHEST. BEDTIME SNACK GIVEN. PAIN MEDS GIVEN. SLEPT MOST OF THE NIGHT. CALL LIGHT IN REACH AND BED ALARM ON.
[2020-11-12 07:52] VITALS: BP 138/66
[2020-11-12 09:02] VITALS: BP 138/66
--- NOTE | 2020-11-12 17:21 | NUR ---
PT UP WITH 1 TO 2 ASSIST. UNSTEADY GAIT. DIFFICULTY STANDING UP. DIFFICULTY FOLLOWING DIRECTIONS. HERE TO VISIT. MIKALA TO AMBER. FALL PRECAUTIONS IN PLACE. CALL LIGHT IN REACH PUT PT DOES NOT CALL OUT PRIOR TO ATTEMPTING TO GET UP.
[2020-11-12 20:24] VITALS: BP 115/58
--- NOTE | 2020-11-13 05:12 | NUR ---
ASSUMED CARES AT 1920. ALERT AND ORIENTED. PAIN MEDS GIVEN FOR RIGHT HIP PAIN. BACH CATHETER DD YELLOW URINE. MOD ASSIST WITH GAIT BELT AND W/C. STAND AND PIVOT. CUEING NEEDED WITH TRANSFERS. HS SNACK GIVEN. SLEPT MOST OF THE NIGHT. CALL LIGHT IN REACH AND BED ALARM ON.
[2020-11-13 08:00] VITALS: BP 115/64
--- NOTE | 2020-11-13 16:08 | NUR ---
CM SPOKE TO THE PT AND HIS SPOUSE TO DISCUSS ANY QUESTIONS TO CONCERNS THAT THEY MAY HAVE FOR THIS WEEKS TEAM CONFRENCE MEETING. PT AND SPOUSE HAVE NO QUESTIONS OR CONCERNS AT THIS TIME. CM AND PHYSICIAN WILL F/U WITH PT AND SPUSE AFTER THE MEETING.
--- NOTE | 2020-11-13 16:11 | NUR ---
CM SPOKE TO THE PT AND HER SPOUSE TO DISCUSS ANY QUESTIONS OR CONCERNS THAT THEY MAY HAVE FOR THIS WEEKS TEAM CONFRENCE MEETING. PT AND SPOUSE HAVE NO QUESTIONS OR CONCERNS AT THIS TIME. CM AND REHAB PHYSICIAN WILL F/U WITH PT AND SPOUSE AFTER THE TEAM MEETING.
--- NOTE | 2020-11-13 17:03 | NUR ---
ALERT AND ORIENTED WITH SOME FORGETFULNESS. NEEDS FREQUENT REMINDERS/CUEING. UP WITH I ASSIST, GAIT BELT AND WALKER. HAS GEORGE CATH IN RIGHT UPPER CHEST. BACH CATHETER PATENT WITH CLEAR YELLOW URINE. RIGHT HIP INCISION HEALED. REMAINS ON 2000ML FLUID RESTRICTION. USES PO PAIN MEDICATION TO HELP WITH PAIN. FALL PRECAUTIONS IN PLACE. BED ALARM AND CHAIR ALARM USED.
[2020-11-13 19:00] VITALS: BP 136/52
--- NOTE | 2020-11-14 05:03 | NUR ---
ASSUMED CARES AT 1920. ALERT AND ORIENTED. RIGHT CHEST PORT A CATH. BACH CATHETER DD YELLOW URINE. NO ISSUES OVERNIGHT. CALL LIGHT IN REACH AND BED ALARM ON.
[2020-11-14 07:45] VITALS: BP 132/56
[2020-11-14 08:22] VITALS: BP 132/56
--- NOTE | 2020-11-14 15:32 | NUR ---
PT , SHELDON, CALLED TO DISCUSS PT CARE. SHELDON ASKED THAT GEORGE DISCUSS IN TEAM WHETHER PT IS BEING CHECKED FOR UTI, HE IS "SO SUSCEPTIBLE TO UTI...THEY COME ON SO FAST...AND THEY ARE RESISTENT TO ORAL ABX. SHELDON STATED THE INFECTION GET BAD AND "TURNS TO SEPSIS VERY QUICKLY AND WE'LL BE BACK AT [facility] TODAY SHELDON NOTED PT BAG "SKIMMING THE FLOOR" AND IT AND HIS SKIN HAVE TO KEPT REALLY CLEAN.
--- NOTE | 2020-11-14 16:58 | NUR ---
UP WITH 1 ASSIST, GAIT BELT AND WALKER. NEED FREQUENT CUEING AND REMINDERS. USES PO PAIN MEDICATION TO HELP WITH RIGHT HIP/BACK PAIN. HAS BACH CATHETER PATENT WITH CLEAR YELLOW URINE. IMPULSIVE AT TIMES. FALL PRECAUTIONS IN PLACE BED ALARM AND CHAIR ALARM USED.
[2020-11-14 17:23] LABS: URINE BILIRUBIN NEGATIVE (Negative); URINE BLOOD NEGATIVE (Negative); URINE CLARITY CLEAR; URINE COLOR YELLOW; URINE GLUCOSE-RANDOM NEGATIVE (Negative); URINE KETONES NEGATIVE (Negative); URINE LEUKOCYTES-REFLEX NEGATIVE (Negative); URINE NITRITE-REFLEX NEGATIVE (Negative); URINE PROTEIN NEGATIVE (Negative); URINE SPECIFIC GRAVITY 1.015 (1.005-1.030); URINE UROBILINOGEN 0.2 E.U./dl (0.2-1.0)
[2020-11-14 19:00] VITALS: BP 143/60
--- NOTE | 2020-11-14 20:25 | NUR ---
SITTING UP IN BED SLEEPING. BACH TO DEPENDENT DRAINAGE WITH YELLOW URINE. UA NEGATIVE. TOOK MEDICATIONS WHOLE WITH WATER. CALL LIGHT WITHIN REACH.
--- NOTE | 2020-11-15 05:23 | NUR ---
RESTED QUIETLY. HOURLY ROUNDING IN PROGRESS.
[2020-11-15 05:27] LABS: HEMATOCRIT 23.7 % (42.0-52.0); HEMOGLOBIN 8.1 gm/dL (14.0-18.0); MCV 85.4 fL (80.0-100.0); MPV 6.8 fl. (7.2-11.1); RBC 2.78 mil/uL (4.50-6.00); RDW-CV 18.4 % (10.5-14.5); WBC 5.8 thou/uL (4.0-11.0)
[2020-11-15 05:33] LABS: CALCIUM 8.4 mg/dL (8.5-10.1); CREATININE 0.9 mg/dL (0.6-1.3); POTASSIUM 3.9 mmol/L (3.5-5.1)
[2020-11-15 08:06] VITALS: BP 132/70
--- NOTE | 2020-11-15 15:27 | NUR ---
TEAM CONFRENCE UPDATE: CM AND PHYSICIAN INFORMED PT AND HIS SPOUSE OF THE MEETING AND PLAN TO D/C PT HOME FRIDAY (11/21/20) WITH HH AND SPOUSE PROVIDING/ARRANGING 13/01 SUPERVISION AND ASSISTANCE. PT AND SPOUSE IN AGREEMENT WITH THE PLAN. PT'S SPOUSE INFORM THAT SHE IS NOT OPEN TO SNF THE PT DOES NOT WANT THAT D/T PAST BAD EXPERIENCES THERE. CM PROVIDED PT'S SPOUSE PRINTED INFO FOR [facility]. CM WILL REMAIN AVAILABLE TO ASSIST AND FOLLOW NEEDED.
--- NOTE | 2020-11-15 16:36 | NUR ---
AM ASSESSMENT AND VITAL SIGNS COMPLETED DOCUMENTED. PT CONTINUES TO WORK WITH ALL THERAPIES BUT FATIGUES QUICKLY. PT CLOSES HIS EYES AND STOPS PARTICIPATING WHEN HE IS TIRED. FALL PRECAUTIONS AND HOURLY ROUNDING CONTINUE.
[2020-11-15 19:00] VITALS: BP 137/57
--- NOTE | 2020-11-16 05:20 | NUR ---
ASSUMED PT CARE AT 1930. ASSESSMENT COMPLETED CHARTED. ABLE TO MAKE TO NEEDS KNOWN. C/O HIP PAIN AND GAVE SCHEDULED PAIN MEDICATIONS. PT RESTING IN BED MOST OF THE NIGHT. WAS ABLE TO WALK FROM BATHROOM TO BED, BUT WAS MOVING SLOWLY. BACH DRAINING YELLOW URINE. WILL CONTINUE TO MONITOR.
[2020-11-16 08:00] VITALS: BP 136/65
[2020-11-16 19:54] VITALS: BP 133/61
--- NOTE | 2020-11-16 20:35 | NUR ---
SITTING UP IN BED SLEEPING. AWAKENED FOR REASSESSMENT AND MEDICATION PASS. BACH TO DEPENDENT DRAINAGE WITH CLEAR/YELLOW URINE. SNACK PROVIDED. CALL LIGHT WITHIN REACH.
--- NOTE | 2020-11-17 05:39 | NUR ---
RESTED QUIETLY. HOURLY ROUNDING IN PROGRESS.
[2020-11-17 08:25] VITALS: BP 150/62
[2020-11-17 09:12] VITALS: BP 150/62
--- NOTE | 2020-11-17 16:22 | NUR ---
PT WORKED WITH THERAPIES. UP WITH GAIT BELT, WALKER, AND 1 TO 2 ASSIST. SCHEDULED PAIN MEDICATION GIVEN. BACH TO DD. CALL LIGHT IN REACH. FALL PRECAUTIONS IN PLACE. HERE TO VISIT.
[2020-11-17 20:27] VITALS: BP 128/55
--- NOTE | 2020-11-18 05:35 | NUR ---
ASSUMED PT CARE AT 1930. ASSESSMENT COMPLETED CHARTED. ABLE TO MAKE NEEDS KNOWN. RESTING IN BED ALL NIGHT. BACH DRAINING YELLOW URINE. C/O PAIN AND GAVE PRN AND SCHEDULED MEDICATIONS PER EMAR. WILL CONTINUE TO MONITOR.
[2020-11-18 08:00] VITALS: BP 143/65
[2020-11-18 20:00] VITALS: BP 125/55
--- NOTE | 2020-11-19 05:25 | NUR ---
ASSUMED PT CARE AT 1930. ASSESSMENT COMPLETED CHARTED. ABLE TO MAKE NEEDS KNOWN. C/O HIP PAIN AND GAVE PRN AND SCHEDULED MEDICATIONS. RESTING IN BED ALL NIGHT. BACH DRAINING YELLOW URINE WITHOUT ISSUES. WILL CONTINUE TO MONITOR.
[2020-11-19 07:44] VITALS: BP 130/58
[2020-11-19 20:23] VITALS: BP 111/42
--- NOTE | 2020-11-20 06:42 | NUR ---
ASSUMED PT CARE AT 1930. ASSESSMENT COMPLETED CHARTED. ABLE TO MAKE NEEDS KNOWN. RESTING IN BED ALL NIGHT. C/O HIP PAIN AND GAVE SCHEDULED PAIN MEDICATIONS. BACH DRAINING YELLOW URINE WITHOUT ISSUES. WILL CONTINUE TO MONITOR.
[2020-11-20 07:55] VITALS: BP 133/65
[2020-11-20 10:37] VITALS: BP 133/65
--- NOTE | 2020-11-20 16:51 | NUR ---
PT UP WITH ASSIST X2. VERY UNSTEADY AND DOES NOT FOLLOW DIRECTIONS DURING TRANSFERS. HIGH FALL RISK PRECAUTIONS IN PLACE. CALL LIGHT IN REACH. MIKALA RIOJAS DD. HERE FOR VISIT TODAY. SCHEDULED PAIN MEDICATIONS GIVEN.
[2020-11-20 19:00] VITALS: BP 137/56
--- NOTE | 2020-11-21 06:42 | NUR ---
ASSUMED PT CARE AT 1930. ASSESSMENT COMPLETED CHARTED. ABLE TO MAKE NEEDS KNOWN. PT RESTING IN BED AT THIS TIME. C/O HIP PAIN AND GAVE PRN AND SCHEDULED PAIN MEDICATIONS PER EMAR. BACH DRAINING YELLOW URINE, REPLACED STAT LOCK, AND NOTED TEARING OF THE MEATUS. WILL CONTINUE TO MONITOR.
[2020-11-21 07:48] VITALS: BP 126/63
[2020-11-21] MEDS ORDERED: ULTRAM 50MG TAB50 MG PO (11:28)
[2020-11-21 13:54] VITALS: BP 133/65
--- NOTE | 2020-11-21 14:32 | NUR ---
PT DISCHARGED HOME WITH BACH CATHETER AND HOME HEALTH. DISCHARGE PAPERWORK WITH EXPLAINATION TO PT AND HIS ,SHELDON. PRESCRIPTION FOR TRAMADOL GIVEN TO SHELDON. SHELDON PACKED ALL BELONGINGS AND TOOK THEM HOME WITH PT. SHELDON VERBALIZED UNDERSTANDING OF BACH CARE. PT TAKEN BY WHEELCHAIR TO [facility].
--- NOTE | 2020-11-21 16:47 | NUR ---
PLAN FOR THE PT TO D/C HOME TODAY WITH SPOUSE, [facility], AND 13/01 CAREGIVER WITH [facility]. CM FAXED PT'S D/C HH ORDERS TO [facility]. PT HAS ALL NEEDED DME. CM WILL REMAIN AVAILABLE TO ASSIST AND FOLLOW NEEDED. [facility] PHONE: [phone]
== END 2020-11-21 14:47 | disposition home health service (06) | DRG 70 ==
LOC: M.REH 10:52 → M.TBA 11-06 15:42 → M.REH 11-06 15:43
PROVIDERS: Internal Medicine; ADMIT Physical Medicine & Rehabilitation; ATTEND Physical Medicine & Rehabilitation
DX: G93.40 Encephalopathy, unspecified (principal); A41.9 Sepsis, unspecified organism; S72.011A Unspecified intracapsular fracture of right femur, initial encounter for closed fracture; N39.0 Urinary tract infection, site not specified; D62 Acute posthemorrhagic anemia; R33.9 Retention of urine, unspecified; J44.9 Chronic obstructive pulmonary disease, unspecified; E11.40 Type 2 diabetes mellitus with diabetic neuropathy, unspecified; E11.51 Type 2 diabetes mellitus with diabetic peripheral angiopathy without gangrene; I10 Essential (primary) hypertension; G47.00 Insomnia, unspecified; R04.0 Epistaxis; I25.10 Atherosclerotic heart disease of native coronary artery without angina pectoris; G30.9 Alzheimer's disease, unspecified; F02.80 Dementia in other diseases classified elsewhere, unspecified severity, without behavioral disturbance, psychotic disturbance, mood disturbance, and anxiety; W18.39XA Other fall on same level, initial encounter; Y93.89 Activity, other specified; Y92.89 Other specified places as the place of occurrence of the external cause; Y99.8 Other external cause status; Z89.431 Acquired absence of right foot; Z88.1 Allergy status to other antibiotic agents; Z88.8 Allergy status to other drugs, medicaments and biological substances; Z86.73 Personal history of transient ischemic attack (TIA), and cerebral infarction without residual deficits; Z87.891 Personal history of nicotine dependence